=== PATIENT | female | born 1945 | race Caucasian/White ===

== ENCOUNTER 2020-11-29 08:47 | Outpatient (REF) | payer MEDICARE, OTHER, SELFPAY ==
--- NOTE | ~2020-11-29 | US_ITS ---
EXAMINATION: COLOR-FLOW DUPLEX IMAGING OF THE BILATERAL LOWER EXTREMITY ARTERIAL SYSTEM. VELOCITY MEASUREMENTS THROUGHOUT THE FEMORAL ARTERIES Interventional Radiologist: Lonny Mills M.D., F.S.I.R., F.A.C.R. CLINICAL INFORMATION: This is a 75-year-old female with bilateral lower extremity claudication. Peripheral arterial disease. RIGHT FEMORAL RUNOFF VELOCITIES: The right common femoral artery measures 151 cm/s and biphasic. The right profunda femoral artery is 74 cm/s and is triphasic. Right proximal superficial femoral artery measures 90 cm/s and biphasic. Mid superficial femoral artery is 92 cm/s and biphasic. Distal right superficial femoral artery measures 65 cm/s and is biphasic. Right popliteal velocity measures 50 cm/s and is biphasic. The posterior tibial artery velocity measures 74 cm/s and was biphasic. LEFT FEMORAL RUNOFF VELOCITIES: The left common femoral artery measures 115 cm/s and triphasic. The left profunda femoral artery is 45 cm/s and is biphasic. Left proximal superficial femoral artery measures 109 cm/s and biphasic. Mid superficial femoral artery is 70 cm/s and biphasic. Distal left superficial femoral artery measures 58 cm/s and is biphasic. Left popliteal velocity measures 45 cm/s and is biphasic. The posterior tibial artery velocity measures 67 cm/s and was triphasic. US/US arterial duplex LE BI IMPRESSION: 1. Normal bilateral resting peripheral arterial testing without evidence of hemodynamically significant stenosis.
== END 2020-11-29 08:48 | disposition home or self-care (01) ==
LOC: HO.US 08:47
PROVIDERS: Visit Provider Internal Medicine
DX: R25.2 Cramp and spasm (principal); I73.9 Peripheral vascular disease, unspecified
CPT/HCPCS: 93925

== ENCOUNTER 2021-08-14 13:58 | Outpatient (REF) | payer MEDICARE, OTHER, SELFPAY ==
--- NOTE | ~2021-08-14 | XR_ITS ---
EXAMINATION: XR CERVICAL SPINE CLINICAL INFORMATION: Cervical radiculopathy. COMPARISON: None TECHNIQUE: 5 views of the cervical spine were obtained. FINDINGS: Bone alignment is normal. No fracture or dislocation is seen. There is degenerative spondylosis at C3-C4, C4-C5, C5-C6 and C6-C7. There may be disc space narrowing at C6-C7. There is mild right-sided neural foraminal narrowing from bony osteophyte at C5-C6. There is left-sided neural foraminal narrowing from bony osteophyte at C3-C4 and C4-C5. Prevertebral soft tissues are normal. XR/XR cervical spine 4V IMPRESSION: Degenerative changes.
== END 2021-08-14 13:59 | disposition home or self-care (01) ==
LOC: HO.XRAY 13:58
PROVIDERS: PCP Internal Medicine; Visit Provider Psychiatry & Neurology Neurology
DX: M54.12 Radiculopathy, cervical region (principal)
CPT/HCPCS: 72050

== ENCOUNTER 2021-10-31 10:11 | Outpatient (REF) | payer MEDICARE, OTHER, SELFPAY ==
--- NOTE | ~2021-10-31 | XR_ITS ---
EXAMINATION: XR CHEST CLINICAL INFORMATION: Dyspnea COMPARISON: Chest radiographs 07/09/2018, 06/24/2017 TECHNIQUE: 2 views of the chest were obtained. FINDINGS: The lungs are clear. There is no airspace consolidation or groundglass opacity or effusion. No pneumothorax or pleural reaction. Heart size normal. Vascularity normal. The hilar and contours are normal. No visible acute bony abnormality. XR/XR chest 2V IMPRESSION: Unremarkable examination.
== END 2021-10-31 10:12 | disposition home or self-care (01) ==
LOC: HO.XRAY 10:11
PROVIDERS: PCP Internal Medicine; Visit Provider Internal Medicine
DX: R06.00 Dyspnea, unspecified (principal)
CPT/HCPCS: 71046

== ENCOUNTER 2021-12-28 09:45 | Outpatient (REF) | payer MEDICARE, MEDICAID, SELFPAY ==
--- NOTE | 2021-12-28 09:48 | EMG_ITS ---
Left median and ulnar motor and sensory studies were performed, left radial sensory study was performed, and paraspinal and limb muscles were tested with a needle. IMPRESSION: 1. [id number] left median neuropathy across carpal tunnel. 2. No evidence of cervical radiculopathy. MD MARY Nuñez/EMMA / [id number]
== END 2021-12-28 09:46 | disposition home or self-care (01) ==
LOC: HO.NEURO 09:45
PROVIDERS: Visit Provider Internal Medicine
DX: R20.2 Paresthesia of skin (principal)
CPT/HCPCS: 95886; 95909

== ENCOUNTER 2022-01-31 13:57 | Outpatient (REF) | payer MEDICARE, MEDICAID, SELFPAY ==
--- NOTE | ~2022-01-31 | FL_ITS ---
EXAMINATION: Modified BARIUM SWALLOW CLINICAL INFORMATION: Dysphagia. COMPARISON: None. TECHNIQUE: Routine modified barium swallow was performed in lateral projection. FINDINGS: Following oral administration of thin barium, there is tiffanie laryngeal penetration and a single episode of laryngeal aspiration. Laryngeal penetration was seen with barium-coated with chicken. No laryngeal aspiration or penetration was seen with honey or nectar consistency food. Normal propagation of barium tablet was seen from the oral cavity through the distal esophagus. Mild and transient holdup of barium tablet was seen at the distal esophagus. FLUOROSCOPY TIME: 2.1 minutes. DOSE AREA PRODUCT: 6.7-4 uGy-m2 (microgray-meter squared). FL/FL barium swallow modified IMPRESSION: Laryngeal penetration seen several times and a single episode of laryngeal penetration with oral administration of thin barium and laryngeal penetration with barium coated chicken as solid food.. No significant retention seen in the valleculae or piriform sinuses. Correlate with speech therapy report.
--- NOTE | 2022-02-01 16:45 | MHC.SL.IMP ---
Date of Plan of Treatment: 01/31/22 Onset of Symptoms/Illness: 07/31/21 Date Treatment Started: 01/31/22 Admitting Diagnosis: Gallstones Diabetes Hypertension Osteoarthritis Primary Speech & Language Diagnosis: R13.12 Oropharyngeal Phase Dysphagia Reason for Today's Visit: 43784 Modified Barium Swallow Study Pre-evaluation Dietary Consistencies: Regular Pre-evaluation Liquid Consistency: Thin Pre-evaluation Medication Administration: Whole with Liquid Medical History: Modified Barium Swallow Study Fluoroscopic Evaluation of Swallowing Function CPT Code 07789 Evaluation Year: 2021 Reason for Study: Patient reports globus sensation. Referring Physician: Mónica Flores M.D. Evaluating Clinician: Heather Bangura MA, CCC-ELIGIBILITY AND OCCUPANCY INTERVIEWER Study Number: 1 Patient Name: Ruma Underwood Status: Outpatient, Ambulatory Age: 76 Gender: Female MEDICAL HISTORY: Year of Onset or Diagnosis: 2021 Comorbidities: Gallstones Diabetes Hypertension Osteoarthritis Current (pre-evaluation) Intake/Diet: Route: PO Diet Grade: Regular Liquid Consistencies: Thin Pre-Study Functional Oral Intake Scale (FOIS): 7- Total oral intake with no restrictions Pain: None reported at time of study SUBJECTIVE: Pt is a 76 year old female who was referred for a modified barium swallow study by Mónica Flores MD. Pt?s past medical history includes gallstones, diabetes, hypertension, osteoarthritis. Pt reported she was also diagnosed with carpal tunnel. Per chart review, pt had chest x-ray done at [facility] on 10/31 which was unremarkable. Pt reports that food sometimes feels stuck in her throat. She stated that she takes sips of water and this reportedly helps. When asked to localize where pt feels this sensation, she pointed just below her thyroid cartilage and at the level of her sternum. Pt recalled one instance when liquid ?seemed to go down the wrong pipe last week,? but otherwise states that she does not usually have any trouble swallowing liquids. Pt denies odynophagia. Pt stated she believes her difficulties might be due to the fact that her dentures are loose, do not fit well, and this results in her ?not chewing food enough.? Pt reports onset of dysphagia 6 months ago. Pt?s voice was observed to be mildly hoarse. Pt denies that there were any changes to her voice however. Oral Motor Exam Facial Symmetry: Asymmetrical Mouth Occlusion: Normal Oral-Facial Teeth Characteristics: Dentures Oral-Facial Smile (Lips) Description: Normal Oral-Facial Puff Cheeks Description: Normal Tongue Size: Normal Tongue Excursion Description: Normal Tongue Range of Movement Description: Normal Tongue Speed of Movement Description: Normal Tongue Strength of Movement (against opposing pressure): Normal Tongue Movement Characteristics: Normal/Absent Is patient able to manage secretions?: Yes Food and Liquid Trials: Oral Impairment: Lip Closure: Did not test Oral Impairment: Tongue Control During Bolus Hold: 0=Cohesive bolus between tongue to palatal seal Oral Impairment: Bolus Preparation/Mastication: 0=Timely and efficient chewing and mashing Oral Impairment: Bolus Transport/Lingual Motion: 0=Brisk tongue motion Oral Impairment: Oral Residue: 1=Trace residue lining oral structures Oral Impairment:Initiation of Pharyngeal Swallow: 3=Bolus head in pyriforms Pharyngeal Impairment: Soft Palate Elevation: 0=No bolus between soft palate (SP)/pharyngeal wall (PW) Pharyngeal Impairment: Laryngeal Elevation: 0=Complete superior movement of thyroid cartilage (see description) Pharyngeal Impairment: Anterior Hyoid Excursion: 0=Complete anterior movement Pharyngeal Impairment: Epiglottic Movement: 0=Complete inversion Pharyngeal Impairment: Laryngeal Vestibular Closure:: 0=Complete: no air/contrast in laryngeal vestibule Pharyngeal Impairment: Pharyngeal Stripping Wave: 0=Present: complete Pharyngeal Impairment: Pharyngeal Contraction: Did not test Pharyngeal Impairment: Pharyngoesophageal Segment Openin=Complete distension and complete duration: no obstruction of flow Pharyngeal Impairment: Tongue Base (TB) Retraction: 1=Trace column of contrast/air between TB and posterior PW Pharyngeal Impairment: Pharyngeal Residue: 0=Complete pharyngeal clearance Pharyngeal Impairment: Esophageal Clearance Upright Position: 0=Complete clearance: esophageal coating Impressions and Recommendations Clinical Observations: OBJECTIVE: Time-out: performed at 02:45 Evaluation Start: 02:30; Stop: 02:40 Patient Positioning: Standing Viewing Planes: LATERAL ONLY Contrast: MBSImP? Standardized Protocol using commercially prepared, standardized Barium viscosities, including: Varibar? THIN LIQUID (40% w/v, <15 cps) , 1/2 Shortbread Cookie (1 x1 x.25 ) MBSImP ID: [id number] MBSImP Results: Lip closure for intraoral bolus containment could not be assessed due to logistical reasons not related to physiologic impairment. Tongue control during bolus hold maintained a cohesive bolus held between tongue to palate seal. Bolus preparation and mastication resulted in timely and efficient chewing and mashing. Bolus transport/lingual motion was with brisk tongue motion. Oral residue was a trace, lining oral structures. Initiation of the pharyngeal swallow occurred when the bolus head was in the pyriform sinuses. Soft palate elevation resulted in no bolus between the soft palate and the pharyngeal wall. Laryngeal elevation demonstrated complete superior movement of the thyroid cartilage with complete approximation of the arytenoids to the epiglottic petiole. Anterior hyoid excursion demonstrated complete anterior movement. Epiglottic movement resulted in complete inversion. Laryngeal vestibular closure was complete, as indicated by no air or contrast within the laryngeal vestibule at the height of the swallow. Pharyngeal stripping wave was present and complete. Pharyngeal contraction could not be determined due to logistical reasons not related to physiologic impairment. Pharyngoesophageal segment opening was completely distended for complete duration with no obstruction of bolus flow. Tongue base retraction allowed a trace column of contrast or air between the retracted tongue base and the posterior pharyngeal wall. Pharyngeal residue was not present. There was complete pharyngeal clearance. Esophageal clearance in the upright position was complete, with only a coating of contrast, if any. Oral Impairment Score: 3 (absence of score, component 1) Pharyngeal Impairment Score: 1 (absence of score, component 13) Esophageal Impairment Score: 0 Laryngeal Penetration and Aspiration: Neither penetration nor aspiration was observed in today's study with Cookie, Thin. ASSESSMENT: Clinician Assessment: This exam was conducted by a multidisciplinary team, which included a speech pathologist, radiologist, and cmm technician. Pt trialed the following liquid and solid consistencies: thin liquid barium by cup, pureed solid (mixture applesauce with barium paste), ground solid (mixture chicken salad with barium paste), regular solid (Jacque Doone cookie coated with barium paste), barium tablet. Pt demonstrated good tongue control, maintaining a cohesive bolus between tongue to palatal seal during bolus hold. Posterior lingual movement for transport of bolus was brisk and timely. Mastication was timely and efficient. There was trace lingual residue considered to be within functional limits and cleared with subsequent dry swallow. Pharyngeal swallow trigger initiated as bolus head reached valleculae, one instance when bolus head had reached pyriforms. There was no nasopharyngeal reflux. Noted complete laryngeal elevation with complete anterior hyoid excursion and complete epiglottic inversion. Laryngeal vestibular closure was complete. There was no evidence of aspiration or penetration with solids and liquids. Complete pharyngeal clearance. No obstruction of flow through pharyngoesophageal segment opening. Liquid Intake Recommendation: Thin Liquid Intake Strategies: Unrestricted Dietary Recommendations: Regular Medication Administration: Whole with Liquid Please contact the pharmacy regarding appropriate crushable or liquid drug formulations that are available whenever modified delivery is recommended. Compensatory Strategies Recommended: Sitting Upright (90 deg) Small Bites and Sips Alternate Liquids/Solids Supervision during eating and or drinking: None Needed Recommendation for Speech Therapy: NA:Typical Evaluation Text Comment: PLAN: Intake Recommendations: Route: PO Diet Grade: Regular Liquid Consistencies: Thin Post-Study Functional Oral Intake Scale (FOIS): 7- Total oral intake with no restrictions Overall this exam was unremarkable. No evidence of aspiration or penetration during this exam. There was good oral and pharyngeal clearance. Pt is recommended to resume unmodified diet- regular solids with thin liquids. Recommend pt to chew food well before swallowing. Moisten foods with sauces and gravies as needed, alternate bites of food with sips of liquids. Suggested Referrals: The patient might benefit from a referral to: Gastroenterology, Otolaryngology Indication for Referral: Further workup of globus sensation if indicated The patient might benefit from a referral to: Dentist Indication for Referral: Pt?s complaints of ill-fitting dentures The patient might benefit from a referral to: Speech Pathology Indication for Referral: Workup of voice if any concern arise though pt reports her voice is at baseline Therapy Recommendations: Therapy will be discontinued Prognosis for Improvement: The prognosis for the patient to meet nutritional needs by mouth is excellent based on degree of impairment. Clinician - Supplemental, Miscellaneous Communication: It is important to note MBSS objective studies are snapshots in time and Patient function might vary with factors such as time of day or concomitant medical conditions. For this reason, the final treatment plan for this patient should rest with their medical care team. Additional recommendations should be considered with the totality of the Patient in mind. Thank for the opportunity to participate in the care of this patient. If you have any questions about the content of this report, please contact the [facility] at [facility]. Education: Education regarding findings from today's study and plans for therapy were provided to Patient only through Verbal Instruction. Understanding was expressed by the Patient only. Sales Performance Manager Clinician/Clinical Fellow: No Supervisory Statement: N/A Speech Language Pathologist: Heather Bangura M.A., [facility]-ELIGIBILITY AND OCCUPANCY INTERVIEWER
== END 2022-01-31 13:58 | disposition home or self-care (01) ==
LOC: HO.XRAY 13:57
PROVIDERS: PCP Internal Medicine; Visit Provider Internal Medicine
DX: R13.12 Dysphagia, oropharyngeal phase (principal)
CPT/HCPCS: 74230; 92611

== ENCOUNTER → 2022-02-13 10:45 | Outpatient (BNVA) | payer MEDICARE, MEDICAID, SELFPAY | PROVIDERS: PCP Internal Medicine; Visit Provider Orthopaedic Surgery | DX: G56.02 Carpal tunnel syndrome, left upper limb (principal); R20.0 Anesthesia of skin | CPT/HCPCS: 99202 ==

== ENCOUNTER 2022-07-12 10:14 | Outpatient (REF) | payer MEDICARE, MEDICAID, SELFPAY ==
--- NOTE | ~2022-07-12 | MM_ITS ---
EXAMINATION: BONE DENSITOMETRY CLINICAL INDICATION: Osteoporosis. COMPARISON: Previous BD dated 03/20/2019 and baseline BD dated 11/15/2009. TECHNIQUE: Using a [employer] DXA System (software version: 13.1) manufactured by [employer], dual-energy x-ray absorptiometry was performed of the lumbar spine and left hip. The images are of good technical quality. Summary results are attached. FINDINGS: AP SPINE L1-L4: Current: BMD 0.910 g/cm2, Z-score -0.6, T-score -2.2, osteopenia, 0.7% decrease from previous, 3.1% increase from baseline (<5% change is not significant). Prior: BMD 0.916 g/cm2. Baseline: BMD 0.883 g/cm2. LEFT FEMUR, NECK: Current: BMD 0.880 g/cm2, Z-score 0.7, T-score -1.1, osteopenia. Prior: BMD 0.853 g/cm2. Baseline: BMD 0.861 g/cm2. LEFT FEMUR, TOTAL: Current: BMD 0.977 g/cm2, Z-score 1.4, T-score -0.2, normal, 0.7% decrease from previous, 1.6% decrease from baseline (<5% change is not significant). Prior: BMD 0.984 g/cm2. Baseline: BMD 0.993 g/cm2. IDENTIFIED RISK FACTORS: Early menopause, hysterectomy, bilateral oophorectomy, secondary osteoporosis. HISTORY OF FRACTURE: None listed. MEDICATIONS: Calcium, vitamin D. MM/XR DEXA axial skeleton IMPRESSION: 1. DIAGNOSIS: Osteopenia based on the lowest T-score value of -2.2 in the lumbar spine applying World Health Organization criteria. 2. 10-YEAR FRACTURE RISK PREDICTION, FRAX: Major osteoporotic fracture (clinical spine, forearm, hip or shoulder) 9.9%. Hip fracture 1.6%. 3. Treatment Recommendations: NOF guidelines recommend consideration for treatment in postmenopausal women and men age 50 and older presenting with the following: -A hip or vertebral (clinical or morphometric) fracture. -T-score less than or equal to -2.5 at the femoral neck or spine after appropriate evaluation to exclude secondary causes. -Low bone mass at the hip or spine and a 10-year fracture probability by FRAX of greater than or equal to 3% for hip fracture or greater than or equal to 20% for major osteoporotic fracture based on the [place] adapted WHO algorithm. 4. Other Recommendations: All treatment decisions require clinical judgment and consideration of individual patient factors, including patient preferences, comorbidities, previous drug use, risk factors not captured in the FRAX model (e.g. frailty, falls, vitamin D deficiency, increased bone turnover, interval significant decline in bone density) and possible under or overestimation of fracture risk by FRAX. Additional medical evaluation for secondary cause of low bone mineral density may be appropriate. FUTURE SCAN RECOMMENDATION: People with diagnosed cases of osteoporosis or at high risk for fracture should have regular bone mineral density tests. For patients eligible for Medicare, routine testing is allowed once every 2 years. The testing frequency can be increased to one year for patients who have rapidly progressing disease, those who are receiving or discontinuing medical therapy to restore bone mass, or have additional risk factors.
== END 2022-07-12 10:15 | disposition home or self-care (01) ==
LOC: HO.MAMMO 10:14
PROVIDERS: PCP Registered Nurse; Visit Provider Registered Nurse
DX: Z13.820 Encounter for screening for osteoporosis (principal); M81.0 Age-related osteoporosis without current pathological fracture; Z78.0 Asymptomatic menopausal state
CPT/HCPCS: 77080

== ENCOUNTER 2023-10-23 13:32 | Outpatient (AMB) | payer MEDICARE, MEDICAID, SELFPAY ==
--- NOTE | 2023-10-23 13:35 | A.OFFVIS_ITS ---
Vital Signs 3 10/23/23 13:36 Height 5 ft 3.5 in Weight 145 lb BMI 25.3 BP 161/67 H Blood Pressure Location Lt brachial Position Sitting Pulse 92 Intake Visit Reasons: Dysphagia Intake Note: Patient in office today as a new patient for dysphagia. CC: Patient c/o trouble swallowing for about 6 months on and off, she states that she feels that the food gets stuck in her esophagus. Denies other GI symptoms. She states that last year had a barium swallow done at the hospital. Solderer Required: No Accompanied by: Self / Same As Patient Allergies No Known Allergies [No Known Allergies*] Allergy (Unverified 02/13/22 11:27) HPI HPI Dysphagia: Details: 76-year-old female here for initial evaluation of dysphagia and nausea and vomiting. She is referred by Devi Arizmendi MD of [facility]. PMX High cholesterol Diabetes Osteoarthritis of the right hip Osteoporosis Cervical spine radiculopathy a Varicose veins of the bilateral lower extremities Dyspnea on exertion * SURGICAL HISTORY Hysterectomy Cholecystectomy * ALLERGIES: NKDA * PCP SUPPLIED LABS: 10/2021 HEMOGLOBIN A1C IS 6.1%, UNREMARKABLE RENAL PANEL, UNREMARKABLE HEPATIC PANEL, UNREMARKABLE CBC, Modified barium swallow 01/31/22 IMPRESSION: Laryngeal penetration seen several times and a single episode of laryngeal penetration with oral administration of thin barium and laryngeal penetration with barium coated chicken as solid food.. No significant retention seen in the valleculae or piriform sinuses. Correlate with speech therapy report. SPEECH THERAPY REPORT Clinician Assessment: This exam was conducted by a multidisciplinary team, which included a speech pathologist, radiologist, and engine emission technician. Pt trialed the following liquid and solid consistencies: thin liquid barium by cup, pureed solid (mixture applesauce with barium paste), ground solid (mixture chicken salad with barium paste), regular solid (Jacque Doone cookie coated with barium paste), barium tablet. Pt demonstrated good tongue control, maintaining a cohesive bolus between tongue to palatal seal during bolus hold. Posterior lingual movement for transport of bolus was brisk and timely. Mastication was timely and efficient. There was trace lingual residue considered to be within functional limits and cleared with subsequent dry swallow. Pharyngeal swallow trigger initiated as bolus head reached valleculae, one instance when bolus head had reached pyriforms. There was no nasopharyngeal reflux. Noted complete laryngeal elevation with complete anterior hyoid excursion and complete epiglottic inversion. Laryngeal vestibular closure was complete. There was no evidence of aspiration or penetration with solids and liquids. Complete pharyngeal clearance. No obstruction of flow through pharyngoesophageal segment opening. Liquid Intake Recommendation: Thin Liquid Intake Strategies: Unrestricted Dietary Recommendations: Regular Medication Administration: Whole with Liquid Please contact the pharmacy regarding appropriate crushable or liquid drug formulations that are available whenever modified delivery is recommended. Compensatory Strategies Recommended: Sitting Upright (90 deg) Small Bites and Sips Alternate Liquids/Solids TODAY'S VISIT She is having trouble swallowing meat and breads. She will have trouble iwth it getting stuck mid sternally about 3 times a month. She denies any trouble with HB and she is not on any HB medicine. Will get EGD and HP breath test today. Start PPI as sometimes this is caused by esophageal spasm from unrecognized GERD and I would like to see how this affects her swallowing. She is agreeable to this. She denies any cardiac or respiratory problems. There are no prior problems with anesthesia or sedation. No ID problems No FHX throat of stomach cancer. Return office visit in 4 weeks to assess the medication. 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 Review of Systems Const Denies fatigue, Denies fever(s), Denies night sweats, Denies poor appetite and Denies weight loss Eyes Details: glasses Reports requires corrective lenses ENT Reports Normal hearing present, Denies dental pain, Reports dysphagia, Denies hearing loss, Denies mouth pain, Denies odynophagia, Denies throat swelling, Denies tongue swelling and Reports other (Dentition adequate) Card Reports no additional complaints Resp Reports no additional complaints GI Details: Denies abdominal pain, Denies melena, Denies bloating, Denies hematochezia, Denies constipation, Denies GI cramping, Reports dysphagia, Denies excessive flatus, Denies early satiety, Denies heartburn, Denies diarrhea, Denies nausea, Denies odynophagia, Denies vomiting and Denies hematemesis Skin/Breast Denies pruritus, Denies lesions, Denies rash and Denies jaundice Neuro Reports Normal hearing present and Denies Abnormal speech present Endo Denies fatigue Aller/Immun Denies throat swelling and Denies tongue swelling Physical Exam Vital Signs: Last Vital Signs Pulse 92 10/23/23 13:36 BP 161/67 H 10/23/23 13:36 BMI result Body Mass Index 25.3 Const General: cooperative, no acute distress, well developed and well groomed Nutritional Appearance: average body habitus and well nourished Orientation/consciousness: oriented to person, oriented to place and oriented to time Limitations: No language barrier HEENT Head: Yes normocephalic and Yes atraumatic Eyes General: appearance normal, both eyes and all related structures Pupils: Equal, round and reactive pupils present Neck Neck: Yes normal visual inspection and Yes no lymphadenopathy Thyroid: Thyroid normal Resp Effort & Inspection: normal respiratory effort and able to speak in complete sentences Auscultation: clear to auscultation bilaterally Cardio Rate: regular rate Rhythm: regular rhythm Heart sounds: Normal, physiologic split S2 sound present Peripheral pulses: radial pulses present and posterior tibial pulses present GI Inspection: No distended, Yes Abdominal panniculus present, Yes obesity, Yes scar and Yes striae Palpation (GI): Soft to palpation, nontender, no guarding, not rigid and No hepatosplenomegaly present Percussion: Yes normal to percussion Auscultation: normal bowel sounds Rectal Exam - Female: deferred Abdomen image: 2 1. surgical scars 2. Skin General skin exam: no rashes or lesions noted, turgor normal, skin not dry, no jaundice, No spider nevi and no striae Rashes: no rashes Nails: normal Neuro General: oriented to person, oriented to place and oriented to time Cranial nerves: Yes Equal, round and reactive pupils present and Yes Normal hearing present Speech: No Abnormal speech present Extrem Other: dry skin lower ext General: Yes normal to inspection, No clubbing, No cyanosis, No edema and Yes venous stasis dermatitis Psych Appearance: grossly normal and well kempt Mental Status: mental status grossly normal Speech and movement: Normal speech and movement present Affect: normal affect Attitude: cooperative Thought process: Normal thought process present and not confabulating Thought content: Normal thought content present Insight: Limited insight present (Psych) Judgement: Limited judgement present (Psych) Assessment & Plan Assessment & Plan (1) Dysphagia: Comment: solid food mid sternal Code(s): R13.10 - Dysphagia, unspecified Category: Medical (2) Pre-op examination: Code(s): Z01.818 - Encounter for other preprocedural examination Category: Medical Plan She is having trouble swallowing meat and breads. She will have trouble iwth it getting stuck mid sternally about 3 times a month. She denies any trouble with HB and she is not on any HB medicine. Will get EGD and HP breath test today. Start PPI as sometimes this is caused by esophageal spasm from unrecognized GERD and I would like to see how this affects her swallowing. She is agreeable to this. She denies any cardiac or respiratory problems. There are no prior problems with anesthesia or sedation. No ID problems No FHX throat of stomach cancer. Return office visit in 4 weeks to assess the medication. Orders: Orders 2 EGD with Garcia - GI Use Only Today R13.10 - Dysphagia, unspecified H Pylori Breath Test Today R13.10 - Dysphagia, unspecified Medications: New 2 omeprazole 40 mg PO DAILY 30 caps 3RF 30 days omeprazole 40 mg PO DAILY 30 days 30 caps 3RF Coding Level of Care Code New Pt Level 3 (40247) Diagnoses Dysphagia R13.10 Pre-op examination Z01.818
[2023-10-23 13:36] VITALS: BP 161/67; PULSE 92; BMI 25.3
== END 2023-10-23 14:49 | disposition home or self-care (01) ==
PROVIDERS: PCP Registered Nurse; Visit Provider Nurse Practitioner
DX: R13.10 Dysphagia, unspecified (principal); Z01.818 Encounter for other preprocedural examination
CPT/HCPCS: 99203

== ENCOUNTER 2023-10-23 13:32 | Outpatient (REF) | payer MEDICARE, MEDICAID, SELFPAY ==
[2023-10-25 13:19] LABS: H Pylori Breath Test Positive (Negative)
== END 2023-10-23 13:33 | disposition home or self-care (01) ==
LOC: HO.LNP 13:32
PROVIDERS: PCP Registered Nurse; Visit Provider Nurse Practitioner
DX: Z01.818 Encounter for other preprocedural examination (principal); R13.10 Dysphagia, unspecified
CPT/HCPCS: 83013; 99202

== ENCOUNTER 2023-11-20 09:16 | Outpatient (AMB) | payer MEDICARE, MEDICAID, SELFPAY ==
--- NOTE | 2023-11-20 09:19 | A.OFFVIS_ITS ---
Vital Signs 11/20/23 09:22 Height 5 ft 3.5 in Weight 141 lb 8.588 oz BMI 24.7 BP 140/66 H Blood Pressure Location Lt brachial Position Sitting Pulse 84 Intake Visit Reasons: Follow up 4 weeks dysphagia Intake Note: Ruma presents to in office visit today in follow up of H pylori. CC: Patient states that she completed her abx course. She reports dysphagia. Denies having other GI symptoms today. 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 She will have trouble iwth it getting stuck mid sternally about 3 times a month. She denies any trouble with HB and she is not on any HB medicine. Will get EGD and HP breath test today. Start PPI as sometimes this is caused by esophageal spasm from unrecognized GERD and I would like to see how this affects her swallowing. She is agreeable to this. She denies any cardiac or respiratory problems. There are no prior problems with anesthesia or sedation. No ID problems No FHX throat of stomach cancer. Return office visit in 4 weeks to assess the medication. Orders: Orders EGD with Garcia - GI Use Only Today R13.10 - Dysphagia, unspecified H Pylori Breath Test Today R13.10 - Dysphagia, unspecified Medications: New omeprazole 40 mg PO DAILY 30 caps 3RF 30 days omeprazole 40 mg PO DAILY 30 days 30 caps 3RF LABS: THE H PYLORI TEST WAS POSITIVE EGD Biopsy CORRESPONDENCE On 10/28/23 @ 13:25 Domi Nguyen Wrote To Kerr,August (2) Domi Nguyen removed from item. On 10/28/23 @ 12:07 Amber Amaya Wrote To Karen Kerr (3) Hi August, I have tried to reach this patient x5 and have had no success. I even tried alt #'s. just FYI On 10/28/23 @ 11:16 Amber Amaya Wrote To Amber Amaya telephone call x4 to alt #[phone]. no answer, left voicemail advising call be returned. On 10/28/23 @ 08:57 Amber Amaya Wrote To Amber Amaya telephone call x3, phone went straight to voicemail. I left message advising call be returned. On 10/25/23 @ 15:02 Amber Amaya Wrote To Amber Amaya telephone call x2, phone goes straight to voicemail. I left message advising call be returned. On 10/25/23 @ 14:06 Amber Amaya Wrote To Amber Amaya telephone call x1 to patient, no answer. I left message advising call be returned. On 10/25/23 @ 13:52 Karen Kerr Wrote To Amber Amaya Karen Kerr removed from item. On 10/25/23 @ 13:51 Karen Kerr Wrote To Karen Kerr (2) Please call this patient and tell her she has an H pylori infection. I am going to start her on quadruple therapy which is Flagyl and tetracycline along with Pepto-Bismol tablets. Please educate her that this will turn her stool black put. Please educated he has a probiotic while she is taking this therapy. Advise her absolutely no alcohol or she will have a disulfiram vomiting reaction. She will have to increase her omeprazole twice a day while she has taking the antibiotics. Medication Orders metronidazole 1,000 mg (2 x 500 mg) PO BID 56 tabs 0RF 14 days New tetracycline 500 mg PO Q12H 28 caps 0RF 14 days New bismuth subsalicylate 2 tabs PO QID 112 tabs 0RF 14 days New omeprazole 40 mg PO BID 28 caps 3RF 14 days Changed omeprazole 40 mg PO DAILY 30 caps 3RF 30 days Discontinued TODAY'S VISIT she is feeling better and swallowing improved after tx. Only completed mid last week, will schedule nurse visit for HP breath test. ROV next week. If the H pylori is eradicated and her symptoms continue to be resolve we may consider cancelling the EGD. 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 Review of Systems Const Denies fatigue, Denies fever(s), Denies night sweats, Denies poor appetite and Denies weight loss Eyes Details: glasses Reports requires corrective lenses ENT Reports Normal hearing present, Denies dental pain, Denies dysphagia, Denies hearing loss, Denies mouth pain, Denies odynophagia, Denies throat swelling, Denies tongue swelling and Reports other (Dentition adequate) Card Reports no additional complaints Resp Reports no additional complaints GI Details: Denies abdominal pain, Denies melena, Denies bloating, Denies hematochezia, Denies constipation, Denies GI cramping, Denies dysphagia, Denies excessive flatus, Denies early satiety, Denies heartburn, Denies diarrhea, Denies nausea, Denies odynophagia, Denies vomiting and Denies hematemesis Skin/Breast Denies pruritus, Denies lesions, Denies rash and Denies jaundice Neuro Reports Normal hearing present and Denies Abnormal speech present Endo Denies fatigue Aller/Immun Denies throat swelling and Denies tongue swelling Physical Exam Vital Signs: Last Vital Signs Pulse 84 11/20/23 09:22 BP 140/66 H 11/20/23 09:22 BMI result Body Mass Index 24.7 Const General: cooperative, no acute distress, well developed and well groomed Nutritional Appearance: average body habitus and well nourished Orientation/consciousness: oriented to person, oriented to place and oriented to time Limitations: No language barrier HEENT Head: Yes normocephalic and Yes atraumatic Eyes General: appearance normal, both eyes and all related structures Pupils: Equal, round and reactive pupils present Neck Neck: Yes normal visual inspection and Yes no lymphadenopathy Thyroid: Thyroid normal Resp Effort & Inspection: normal respiratory effort and able to speak in complete sentences Auscultation: clear to auscultation bilaterally Cardio Rate: regular rate Rhythm: regular rhythm Heart sounds: Normal, physiologic split S2 sound present Peripheral pulses: radial pulses present and posterior tibial pulses present GI Inspection: No distended and No Abdominal panniculus present Palpation (GI): Soft to palpation, nontender, no guarding, not rigid and No hepatosplenomegaly present Percussion: Yes normal to percussion Auscultation: normal bowel sounds Rectal Exam - Female: deferred Skin General skin exam: no rashes or lesions noted, turgor normal, skin not dry, no jaundice, No spider nevi and no striae Rashes: no rashes Nails: normal Neuro General: oriented to person, oriented to place and oriented to time Cranial nerves: Yes Equal, round and reactive pupils present and Yes Normal hearing present Speech: No Abnormal speech present Extrem General: Yes normal to inspection, No clubbing, No cyanosis and No edema Psych Appearance: grossly normal and well kempt Mental Status: mental status grossly normal Speech and movement: Normal speech and movement present Affect: normal affect Attitude: cooperative Thought process: Normal thought process present and not confabulating Thought content: Normal thought content present Insight: Limited insight present (Psych) Judgement: Limited judgement present (Psych) Assessment & Plan Assessment & Plan (1) Dysphagia: Comment: solid food mid sternal Code(s): R13.10 - Dysphagia, unspecified Category: Medical (2) H. pylori infection: Comment: Treated with quadruple therapy 10/2023 Code(s): A04.8 - Other specified bacterial intestinal infections Category: Medical Plan she is feeling better and swallowing improved after tx. Only completed mid last week, will schedule nurse visit for HP breath test. ROV next week. If the H pylori is eradicated and her symptoms continue to be resolve we may consider cancelling the EGD. Orders: Orders H Pylori Breath Test 11/27/23 Medications: On Hold omeprazole Hold Comment: Doctor's Order 40 mg PO BID 14 days 28 caps 3RF Coding Level of Care Code Est Pt Level 3 (27799) Diagnoses Dysphagia R13.10 H. pylori infection A04.8
[2023-11-20 09:22] VITALS: BP 140/66; PULSE 84; BMI 24.7
== END 2023-11-20 09:42 | disposition home or self-care (01) ==
PROVIDERS: PCP Registered Nurse; Visit Provider Nurse Practitioner
DX: R13.10 Dysphagia, unspecified (principal); A04.8 Other specified bacterial intestinal infections
CPT/HCPCS: 99213

== ENCOUNTER → 2023-11-20 09:16 | Outpatient (BNVA) | payer MEDICARE, MEDICAID, SELFPAY | PROVIDERS: PCP Registered Nurse; Visit Provider Nurse Practitioner | DX: R13.10 Dysphagia, unspecified (principal); A04.8 Other specified bacterial intestinal infections | CPT/HCPCS: 99212 ==

== ENCOUNTER 2023-11-27 08:52 | Outpatient (REF) | payer MEDICARE, MEDICAID, SELFPAY ==
[2023-11-28 11:36] LABS: H Pylori Breath Test Negative (Negative)
== END 2023-11-27 08:53 | disposition home or self-care (01) ==
LOC: HO.LNP 08:52
PROVIDERS: PCP Registered Nurse; Visit Provider Nurse Practitioner
DX: A04.8 Other specified bacterial intestinal infections (principal)
CPT/HCPCS: 83013

== ENCOUNTER 2025-03-09 08:42 | Outpatient (REF) | payer MEDICARE, MEDICAID, SELFPAY ==
[2025-03-09 12:15] LABS: Alanine Aminotransferase 28 U/L (0-31); Albumin Level 4.6 g/dL (3.5-5.0); Alkaline Phosphatase 66 U/L (39-117); Anion Gap 11 (12-20); Aspartate Amino Transferase 33 U/L (5-31); Blood Urea Nitrogen 14 mg/dL (9-16); Calcium 9.3 mg/dL (8.4-10.2); Carbon Dioxide 27 mmol/L (22-29); Chloride 107 mmol/L (96-108); Cholesterol 134 mg/dL (<200); Estimated Glomerular Filt Rate > 60; HDL Cholesterol 53 mg/dL (>40); Potassium 4.0 mmol/L (3.3-5.1); Sodium 141 mmol/L (135-145); Total Protein 7.1 g/dL (6.5-8.0); Triglycerides 98 mg/dL (<150)
[2025-03-09 12:48] LABS: Microalbum/Creatinine Ratio Ur 10.6 ug/mg cr (<30)
[2025-03-09 14:07] LABS: HBS Num1 0.00 mIU/mL (0-7.99); HIV Num 1 0.05 S/CO (0.00-0.99); ~Hepatitis B Surface Antibody NONREACTIVE (Nonreactive)
== END 2025-03-09 08:43 | disposition home or self-care (01) ==
LOC: HO.HHCL 08:42
PROVIDERS: Family Medicine; PCP Internal Medicine; Visit Provider Internal Medicine
DX: Z11.4 Encounter for screening for human immunodeficiency virus [HIV] (principal); Z11.3 Encounter for screening for infections with a predominantly sexual mode of transmission; E11.9 Type 2 diabetes mellitus without complications; E78.2 Mixed hyperlipidemia
CPT/HCPCS: 36415; 80053; 80061; 82043; 82570; 86706; 87389